=== PATIENT | male | born 1935 | race Caucasian/White ===

== ENCOUNTER 2016-08-08 18:57 | Inpatient (IN) | payer MEDICARE, BC ==
[~2016-08-08] VITALS: Ht 180.3 cm; Wt 87.5 kg
[2016-08-08] MEDS ORDERED: BENA40TA2 PO (19:27)
[2016-08-08] MEDS ORDERED: ASPI325T80 PO (19:27)
[2016-08-08] MEDS ORDERED: ATOR80TA75 PO (19:27)
[2016-08-08] MEDS ORDERED: NEBI10TA3 PO (19:27)
[2016-08-08] MEDS ORDERED: AMLO10TA2 PO (19:27)
[2016-08-08 21:42] VITALS: BP 188/89
[2016-08-08] MEDS ORDERED: MAGNESIUM SULFATE PMX 2GM/50ML 50 ML IV ONE (22:00)
[2016-08-08] MEDS ORDERED: DEXTROSE 50%, 50ML SYRINGE IVPush PRN (22:00)
[2016-08-08] MEDS ORDERED: DEXTROSE 4 GM TAB.CHEW PO PRN (22:00)
[2016-08-08] MEDS ORDERED: GLUCAGON 1 MG IM PRN (22:00)
[2016-08-08] MEDS ORDERED: ENOXAPARIN 40 MG/0.4 ML SQ SCH (22:30)
[2016-08-08] MEDS ORDERED: NITROGLYCERIN 0.4 MG/SPRAY SL PRN (22:30)
[2016-08-08] MEDS ORDERED: MORPHINE SULFATE 4 MG/ML, 1ML IVPush PRN (22:30)
[2016-08-08] MEDS ORDERED: POLYETHYLENE GLYCOL 17 GM PACKET PO PRN (22:30)
[2016-08-08] MEDS ORDERED: HYDROcodone/APAP 5/325 TABLET PO PRN (22:30)
[2016-08-08] MEDS ORDERED: BISACODYL 10 MG SUPP PR PRN (22:30)
[2016-08-08] MEDS ORDERED: NITROGLYCERIN 0.4 MG BOTTLE (25 TABS) SL PRN (22:30)
[2016-08-08] MEDS ORDERED: DOCUSATE 100 MG CAPSULE PO PRN (22:30)
[2016-08-08] MEDS ORDERED: ENALAPRILAT 1.25 MG/ML, 2ML IVPush PRN (22:30)
[2016-08-08] MEDS ORDERED: ONDANSETRON 2MG/ML, 2ML IVP PRN (22:30)
[2016-08-08] MEDS ORDERED: LABETALOL 5MG/ML, 20ML IV PRN (22:30)
[2016-08-08] MEDS ORDERED: ACETAMINOPHEN 325 MG TABLET PO PRN (22:30)
[2016-08-08] MEDS ORDERED: PROMETHAZINE 25 MG/ML, 1ML IM PRN (22:30)
[2016-08-08] MEDS ORDERED: PLEASE ENTER ALLERGIES MC SCH ×2 (23:00)
[2016-08-09] MEDS: SODIUM CHLORIDE FLUSH 10ML SYR IVF SCH ×2 (01:58→08:10)
[2016-08-09 02:00] VITALS: BP 173/77
[2016-08-09 03:00] LABS: ASPARTATE AMINO TRANSFERASE 15 U/L (15-37); BLOOD UREA NITROGEN 16 mg/dL (7-18)
[2016-08-09 03:14] LABS: IS PT STATUS REG ER OR PRE ER? NO
[2016-08-09] MEDS: NS + 20MEQ KCL 1,000 ML IV SCH ×2 (04:48→17:20)
[2016-08-09] MEDS ORDERED: ASPIRIN 325 MG TABLET EC PO SCH (06:00)
[2016-08-09] MEDS: INSULIN ASPART 100 UNITS/ML, PEN SQ-INSULIN SCH ×3 (07:00→16:00)
[2016-08-09 07:03] VITALS: BP 196/94
[2016-08-09 08:48] LABS: IS PT STATUS REG ER OR PRE ER? NO
[2016-08-09] MEDS ORDERED: BENAZEPRIL 20 MG TABLET PO SCH (09:00)
[2016-08-09] MEDS ORDERED: NEBIVOLOL HCL 5 MG TABLET PO SCH (09:00)
[2016-08-09] MEDS ORDERED: REGADENOSON 0.4 MG/5 ML SYRINGE ONE (09:56)
[2016-08-09] MEDS ORDERED: POTASSIUM CHLORIDE 20 MEQ TAB.ER.PRT PO ONE ×2 (10:16→13:30)
[2016-08-09] MEDS ORDERED: CHLORTHALIDONE 25 MG TABLET PO SCH (10:30)
[2016-08-09 12:11] VITALS: BP 169/81
[2016-08-09 14:42] VITALS: BP 170/78
[2016-08-09] MEDS ORDERED: CHLO25TA PO (15:21)
[2016-08-09 16:41] VITALS: BP 159/77
[2016-08-09] MEDS ORDERED: ATORVASTATIN 80 MG TABLET PO SCH (21:00)
[2016-08-10 14:44] VITALS: BP 116/77
== END 2016-08-09 18:41 | disposition home or self-care (01) | DRG 305 ==
LOC: ED 20:02 → EDIP 20:19 → 5SO 21:38
PROVIDERS: ADMIT Internal Medicine; ATTEND Internal Medicine
DX: I16.9 Hypertensive crisis, unspecified (principal); R07.89 Other chest pain; I16.0 Hypertensive urgency; E78.5 Hyperlipidemia, unspecified; E87.6 Hypokalemia; I11.9 Hypertensive heart disease without heart failure; Z85.828 Personal history of other malignant neoplasm of skin; Z87.442 Personal history of urinary calculi; Z87.891 Personal history of nicotine dependence; E74.39 Other disorders of intestinal carbohydrate absorption; R01.1 Cardiac murmur, unspecified
CPT/HCPCS: 36415; 78452; 80053; 80061; 82247; 82248; 82962; 83036; 83735; 84100; 84443; 84484; 85025; 93005; 93017; 93306; J1650; J1815; J2785; J3480; A9502; C9898; J3475